=== PATIENT | female | born 1965 | race Caucasian/White ===

== ENCOUNTER 2018-04-25 12:13 | Inpatient (IN) | payer OTHER ==
[~2018-04-25] VITALS: Ht 157.5 cm; Wt 62.9 kg
--- NOTE | 2018-04-25 12:39 | Emergency Room Report ---
History of Present Illness General Chief Complaint: General Complaint Source: Patient, Significant Other Present Illness HPI Patient here for fever, suprapubic pain post embolectomy. She was seen with anemia a few weeks ago and started getting transfused. She had some chest pain and palpitations and transfusion was stopped. She had embolectomy of uterine fibroids Tuesday. Continued pain, fevers and weakness with pallor. Seen by MD with fever 102. Given tylenol. Pain rated 8/10, aching, pressure, suprapubic and not sig radiation. Oxycontin taken last night. Not move bowels for several days. Passing gas. Had [place] place during the operation. Sent to ED for transfusion due to pallor. Also needing evaluation for fevers and pain. Some dizziness and [place]. No chest pain. No dysuria. No cough, sore throat, rashes, extremity pain. Allergies: Coded Allergies: BACITRACIN (Unverified Allergy, Unknown, 04/25/18) NEOMYCIN (Unverified Allergy, Unknown, 04/25/18) POLYMYXIN B (Unverified Allergy, Unknown, 04/25/18) Uncoded Allergies: NEOSPORIN (Allergy, Unknown, 04/25/18) Patient History Past Medical History: see triage record Social History: Reports: alcohol use - rare; Denies: smoking, drug use Social History Narrative Now: No Reviewed Nursing Documentation: PMH: Agreed; PSxH: Agreed Review of Systems All Other Systems: negative except mentioned in HPI Physical Exam Vital Signs Date Time Temp Pulse Resp B/P (MAP) Pulse Ox O2 Delivery O2 Flow Rate FiO2 04/25/18 12:33 98.5 81 15 124/67 100 Room Air 98.4 Sp02 EP Interpretation: reviewed, normal General Appearance: no apparent distress, GCS 15 Head: normocephalic Eyes: bilateral eye PERRL, bilateral eye conjunctivae pale ENT: moist mucus membranes Neck: supple Respiratory: lungs clear, normal breath sounds Cardiovascular #1: regular rate, rhythm Cardiovascular #2: 2+ radial (R) Gastrointestinal: normal inspection, normal bowel sounds, no mass, non- distended, no guarding, no rebound, tenderness - suprapubic Genitourinary: no CVA tenderness Musculoskeletal: back normal, digits/nails normal, normal range of motion Neurologic: alert, oriented x3, grossly normal Psychiatric: mood/affect normal Skin: warm/dry, pallor Procedures Critical Care Time Critical Care Time Total Critical Care Time: 30 min bedside evaluation and treatment excludes procedures (EKG). Reason for critical care: sepsis, profound anemia Possible complications: hypotension, hypertension, IL, shock, arrhythmias, metabolic acidosis, end organ damage, respiratory failure. Interventions: Fluid resuscitation, antibiotics, blood, consultations, repeated evaluations Course: Patient with fever and pallor post embolectomy. Fluid resuscitation. Broad spectrum antibiotics. Need for blood. Discussion with blood bank. Informed consent with patient for blood (concern over prior reaction). Discussion regarding pain medicine. Observation receiving blood. Discussed with PMND - [employer]ass Plant Manager several times. Discussed with Int Med MD. Improved with treatment. Consultations: nursing staff, EMS, spouse, admitting MD, blood bank, PMD-LOB time study clerk Performed by: Dr. Roe Tolerated well condition = serious Medical Decision Making Diagnostic Impression: Primary Impression: Sepsis Qualified Codes: A41.9 - Sepsis, unspecified organism Additional Impressions: Profound anemia Qualified Codes: D62 - Acute posthemorrhagic anemia History of embolectomy ER Course Patient post embolectomy with pallor and fever with suprapubic pain. DDx; sepsis, anemia from blood loss, hemorrhagic shock, endometritis, UTI, other source of infection. Evaluation with EKG, CXR, CT abd/pelvis, labs. Needs hydration and broad spectrum antibiotics. Also offered treatment for pain. EKG without injury. Sig anemia (prior to hydration). Normal lactate. Elevated WBC. Urine positive ketones and blood (no evidence of infection). Blood ordered with calls to blood bank. Receiving blood without difficulty. Some improved after Fentanyl repeat dose. Discussed several times with Dr. Osorio. Admit med Dr. Osorio. Seen by Dr. Irvin in ED. Laboratory Tests Test 04/25/18 12:30 04/25/18 13:22 White Blood Count 17.1 K/UL (4.8-10.8) H Red Blood Count 2.88 M/UL (4.20-5.40) L Hemoglobin 7.5 G/DL (12.0-16.0) L Hematocrit 23.6 % (37.0-47.0) L Mean Corpuscular Volume 82 FL (80-99) Mean Corpuscular Hemoglobin 26.2 PG (27.0-31.0) L Mean Corpuscular Hemoglobin Concent 32.0 G/DL (32.0-36.0) Red Cell Distribution Width 12.9 % (11.6-14.8) Platelet Count 321 K/UL (150-450) Mean Platelet Volume 7.2 FL (6.5-10.1) Neutrophils (%) (Auto) % (45.0-75.0) Lymphocytes (%) (Auto) % (20.0-45.0) Monocytes (%) (Auto) % (1.0-10.0) Eosinophils (%) (Auto) % (0.0-3.0) Basophils (%) (Auto) % (0.0-2.0) Differential Total Cells Counted 100 Neutrophils % (Manual) 86 % (45-75) H Lymphocytes % (Manual) 9 % (20-45) L Monocytes % (Manual) 5 % (1-10) Eosinophils % (Manual) 0 % (0-3) Basophils % (Manual) 0 % (0-2) Band Neutrophils 0 % (0-8) Platelet Estimate Adequate Platelet Morphology Normal Hypochromasia 3+ Anisocytosis 1+ Spherocytes 2+ Prothrombin Time 11.2 SEC (9.30-11.50) Prothrombin Time INR 1.1 (0.9-1.1) PTT 45 SEC (23-33) H Sodium Level 135 MMOL/L (136-145) L Potassium Level 3.2 MMOL/L (3.5-5.1) L Chloride Level 97 MMOL/L (98-107) L Carbon Dioxide Level 28 MMOL/L (21-32) Anion Gap 10 mmol/L (5-15) Blood Urea Nitrogen 10 mg/dL (7-18) Creatinine 0.8 MG/DL (0.55-1.30) Estimate Glomerular Filtration Rate > 60 mL/min (>60) Glucose Level 126 MG/DL (74-106) H Lactic Acid Level 1.10 mmol/L (0.4-2.0) Calcium Level 8.6 MG/DL (8.5-10.1) Total Bilirubin 0.7 MG/DL (0.2-1.0) Aspartate Amino Transferase (AST) 17 U/L (15-37) Alanine Aminotransferase (ALT) 13 U/L (12-78) Alkaline Phosphatase 67 U/L (46-116) Total Protein 7.1 G/DL (6.4-8.2) Albumin 2.9 G/DL (3.4-5.0) L Globulin 4.2 g/dL Albumin/Globulin Ratio 0.7 (1.0-2.7) L Lipase 75 U/L (73-393) Urine Color Pending Urine Appearance Pending Urine pH Pending Urine Specific [place] Pending Urine Protein Pending Urine Glucose (UA) Pending Urine Ketones Pending Urine Occult Blood Pending Urine Nitrite Pending Urine Bilirubin Pending Urine Urobilinogen Pending Urine Leukocyte Esterase Pending Urine HCG, Qualitative Pending EKG Diagnostic Results Rate: normal Rhythm: NSR ST Segments: no acute changes Rhythm Strip Diag. Results EP Interpretation: yes Rhythm: NSR, no PVC's, no ectopy CT/MRI/US Diagnostic Results CT/MRI/US Diagnostic Results : Imaging Test Ordered: ct abd pelvis Impression Impression: Mixed attenuation uterine masses, largest containing central gas bubbles, as described. Appearance characteristic and typical of recent uterine fibroid embolization. No findings to suggest acute complication demonstrated Right groin findings consistent with recent arterial puncture Reticulated area of high attenuation in segment 8 of the liver. Their is a component of calcification, uncertain as to whether the remainder is due to calcification or contrast enhancement. If the former, this presumably represents a postinflammatory lesion. If the latter, could represent process such is an unusual hemangioma but other etiologies possible. Consider liver specific MRI for better characterization or compare to any prior outside studies that may be available Subcentimeter low-attenuation right renal lesion, too small to characterize, most likely benign simple cyst. No further follow-up necessary Minimal basilar dependent pulmonary atelectatic changes Last Vital Signs Date Time Temp Pulse Resp B/P (MAP) Pulse Ox O2 Delivery O2 Flow Rate FiO2 04/25/18 12:33 98.5 81 15 124/67 100 Room Air 98.4 Status: improved Disposition: ADMITTED INPATIENT Condition: Serious Sterling Roe M.D. Apr 25, 2018 12:39
[2018-04-25 12:52] VITALS: BP 124/67
[2018-04-25 13:00] LABS: HEMATOCRIT 23.6 % (37.0-47.0); HEMOGLOBIN 7.5 G/DL (12.0-16.0); MEAN CORPUSCULAR VOLUME 82 FL (80-99); PLATELET COUNT 321 K/UL (150-450); RED BLOOD COUNT 2.88 M/UL (4.20-5.40); RED CELL DISTRIBUTION WIDTH 12.9 % (11.6-14.8); WHITE BLOOD COUNT 17.1 K/UL (4.8-10.8)
[2018-04-25] MEDS ORDERED: Cefepime HCl 1 GM in D5W 55 ML IVPB ONE (13:00)
[2018-04-25 13:17] LABS: ANION GAP 10 mmol/L (5-15); BLOOD UREA NITROGEN 10 mg/dL (7-18); CALCIUM 8.6 MG/DL (8.5-10.1); CARBON DIOXIDE 28 MMOL/L (21-32); CHLORIDE 97 MMOL/L (98-107); CREATININE 0.8 MG/DL (0.55-1.30); POTASSIUM 3.2 MMOL/L (3.5-5.1); SODIUM 135 MMOL/L (136-145)
[2018-04-25 13:18] LABS: INR 1.1 (0.9-1.1)
[2018-04-25 13:21] LABS: ALANINE AMINOTRANSFERASE 13 U/L (12-78); ALBUMIN 2.9 G/DL (3.4-5.0); ALBUMIN/GLOBULIN RATIO 0.7 (1.0-2.7); ALKALINE PHOSPHATASE 67 U/L (46-116); ASPARTATE AMINO TRANSFERASE 17 U/L (15-37); BILIRUBIN,TOTAL 0.7 MG/DL (0.2-1.0)
[2018-04-25] MEDS ORDERED: fentaNYL 100 mcg/2 mL IV ONE ×2 (14:15→15:00)
[2018-04-25] MEDS ORDERED: oxyCODONE HCL/Acetaminophen 5/325mg ORAL PRN (14:30)
[2018-04-25 15:05] VITALS: BP 138/78
[2018-04-25 15:20] VITALS: BP 133/73
--- NOTE | 2018-04-25 15:28 | Diagnostic Imaging Report ---
Clinical Indication: Abdominal pain, cramping, status post uterine fibroid embolization Technique: Patient ingested oral contrast. IV administration nonionic contrast. Venous phase spiral acquisition obtained through the abdomen and pelvis. Multiplanar reconstructions were generated. Total dose length product 579.19 mGycm. CTDIvol(s) 11.73 mGy. Dose reduction achieved using automated exposure control Comparison: none Findings: The uterus is enlarged, demonstrates multiple mixed, mostly hypoattenuating, masses. The largest of these contains air bubbles. A few calcifications are seen anteriorly. The ovaries are unremarkable. No evidence of colon wall thickening, small bowel wall thickening, or bladder wall thickening. No free or loculated pelvic or abdominal fluid collections are evident. There is a moderate amount of retained stool throughout the colon, particularly proximally, and some of the more distal stool is fairly hyperattenuating. There is a slight degree of infiltration of the fat in the region of the right common femoral artery, and perhaps a small amount of blood surrounding the proximal superficial femoral artery, expected findings presumably related to the recent arterial puncture, but no large hematoma or pseudoaneurysm The appendix is normal. No evidence of diverticulosis or diverticulitis. No small bowel distention. Ingested contrast is seen throughout the entirety of the small bowel and well into the colon. No extraluminal gas demonstrated. Reticular appearing area of high attenuation is seen within the right hepatic lobe, segment 8. Unclear as to whether the hyperattenuation reflects calcification or contrast enhancement. Overall, this area measures approximately 3 cm long axis dimension. No other liver lesions are identified. The gallbladder, bile ducts, pancreas, spleen, adrenals, left kidney are unremarkable. The right kidney demonstrates an interpolar region subcentimeter low-attenuation lesion which is too small to characterize. Abundant, prominent, but not frankly enlarged retroperitoneal lymph nodes are demonstrated. There is posterior dependent atelectatic change at the lung bases, particularly on the right. The bones are unremarkable. Impression: Mixed attenuation uterine masses, largest containing central gas bubbles, as described. Appearance characteristic and typical of recent uterine fibroid embolization. No findings to suggest acute complication demonstrated Right groin findings consistent with recent arterial puncture No acute abnormality otherwise Reticulated area of high attenuation in segment 8 of the liver. Their is a component of calcification, uncertain as to whether the remainder is due to calcification or contrast enhancement. If the former, this presumably represents a postinflammatory lesion. If the latter, could represent process such is an unusual hemangioma but other etiologies possible. Consider liver specific MRI for better characterization or compare to any prior outside studies that may be available Subcentimeter low-attenuation right renal lesion, too small to characterize, most likely benign simple cyst. No further follow-up necessary Minimal basilar dependent pulmonary atelectatic changes The CT scanner at [facility] is accredited by the [employer] and the scans are performed using protocols designed to limit radiation exposure to as low as reasonably achievable to attain images of sufficient resolution adequate for diagnostic evaluation.
[2018-04-25 16:30] VITALS: BP 139/81
--- NOTE | 2018-04-25 16:45 | Consultation ---
Consult Note Consult Note Medicine consult dict anemia fever post [place] fibroids with bleeding HTN HPLD constipation see orders Darryn Irvin MD Apr 25, 2018 16:45
[2018-04-25 17:02] LABS: APPEARANCE,URINE CLEAR; BILIRUBIN, URINE NEGATIVE (NEGATIVE); COLOR,URINE PALE YELLOW; GLUCOSE, URINE (UA) NEGATIVE (NEGATIVE); KETONES,URINE 3+ (NEGATIVE); LEUKOCYTE ESTERASE ,URINE 1+ (NEGATIVE); NITRITE,URINE NEGATIVE (NEGATIVE); PH,URINE 6.5 (4.5-8.0); PROTEIN,URINE 1+ (NEGATIVE); UROBILINOGEN,URINE NORMAL MG/DL (0.0-1.0)
[2018-04-25] MEDS: HYDROmorphone 1mg/ml Carpuject IVP PRN ×2 (17:19→20:29)
[2018-04-25 17:32] VITALS: BP 156/86
[2018-04-25] MEDS: Docusate 100mg cap ORAL SCH (18:57)
[2018-04-25 20:00] VITALS: BP 137/73
[2018-04-25] MEDS: Potassium Chloride 20 MEQ in Dextrose 5%/Lactated Ringer's 1,000 ML IV SCH ×2 (20:32→22:41)
[2018-04-25] MEDS ORDERED: LISINOPRIL5 MG ORAL (20:55)
[2018-04-25] MEDS ORDERED: METOPROLOL SUCC25 MG ORAL (20:58)
[2018-04-25] MEDS: Iron Sucrose 100 MG in NS 55 ML IV SCH ×2 (21:00→22:40)
[2018-04-25] MEDS ORDERED: Zolpidem 5mg tab ORAL PRN (21:00)
[2018-04-25] MEDS: Lisinopril 10mg tab ORAL SCH (21:46)
[2018-04-25] MEDS: Miralax 17gm pkt ORAL SCH (21:46)
[2018-04-26] VITALS: BP 115/64
--- NOTE | 2018-04-26 01:47 | Consultation ---
DATE OF CONSULTATION: 04/25/2018 INTERNAL MEDICINE CONSULTATION CONSULTING PHYSICIAN: Mj Irvin M.D. HISTORY OF PRESENT ILLNESS: This is a 52-year-old woman who lives in [facility] and the [facility] and traveled here because of recurrent vaginal bleeding due to fibroids. She had problems with vaginal hemorrhage several years ago, but it stopped spontaneously until about several weeks ago and it recurred and that she was hospitalized hemorrhage about a week ago in [place] and the bleeding persisted. She had a blood transfusion that was aborted because of palpitations and went home with a hemoglobin less than 7. She traveled here and saw Dr. Osorio, who arranged a uterine artery embolization about 4 days ago. Since that time, she is having intermittent fevers up to 102 degrees and anemic. She was admitted for these reasons. PAST MEDICAL HISTORY: She does not smoke or drink excessively. She has a history of longstanding hypertension and is on medications. She has high cholesterol. She does not take medication for this. She has had the heart attack about three years ago, which she attributes to stress. She stated that the stress test showed no sign of blockage. ALLERGIES: . MEDICATIONS: Lisinopril 5 mg daily, metoprolol 25 mg daily, and iron she takes as needed. REVIEW OF SYSTEMS: Otherwise unremarkable. She is constipated. She has never had a colonoscopy. PHYSICAL EXAMINATION: GENERAL: The patient is alert and responsive. She appears pale. VITAL SIGNS: Blood pressure is 133/73, temperature 99.1 degrees, heart rate is 90, respirations 20, saturation is normal. SKIN: Warm and dry. HEENT: Head is normocephalic. NECK: No jugular venous distention. CHEST: Clear. CARDIAC: Rhythm is regular. ABDOMEN: Soft. There is no significant tenderness except in the suprapubic area. There is no mass or ascites. The liver and spleen are not enlarged. EXTREMITIES: No clubbing, cyanosis, or edema. LABORATORY AND DIAGNOSTIC DATA: Hemoglobin is 7.5, white count is 17,100 and there is a left shift, and platelets are normal. Chemistry shows low potassium, blood sugar is 126. Albumin 2.9. Urinalysis is pending. Coagulation shows INR is minimal, PTT is slightly elevated. IMPRESSION: 1. Post hemorrhagic anemia. 2. Fibroid uterus with recurrent hemorrhage. 3. Fever following uterine artery embolization. 4. Hypertension. 5. Hyperlipidemia. 6. Constipation. PLAN: The patient will be given intravenous fluids, antibiotics, and blood transfusion. Blood pressure will be managed with medication. We will check appropriate laboratory studies and monitor her closely. Constipation will be addressed. Thank you for asking me to see her in consultation. Mj Irvin M.D. DR: DIAN JOB#: [id number] CC: Chinmay Osorio M.D.; Fax#: [phone] MJ IRVIN M.D. ; FAX#: [phone]
[2018-04-26] MEDS: Cefepime HCl 1 GM in D5W 55 ML IVPB SCH ×2 (02:43→13:27)
[2018-04-26 04:00] VITALS: BP 133/72
[2018-04-26 04:41] LABS: HEMATOCRIT 33.4 % (37.0-47.0); HEMOGLOBIN 10.8 G/DL (12.0-16.0); MEAN CORPUSCULAR VOLUME 83 FL (80-99); PLATELET COUNT 329 K/UL (150-450); RED BLOOD COUNT 4.03 M/UL (4.20-5.40); RED CELL DISTRIBUTION WIDTH 12.8 % (11.6-14.8); WHITE BLOOD COUNT 15.4 K/UL (4.8-10.8)
[2018-04-26 05:18] LABS: ALANINE AMINOTRANSFERASE 12 U/L (12-78); ALBUMIN/GLOBULIN RATIO 0.8 (1.0-2.7); ALKALINE PHOSPHATASE 64 U/L (46-116); ANION GAP 11 mmol/L (5-15); ASPARTATE AMINO TRANSFERASE 19 U/L (15-37); BILIRUBIN,TOTAL 0.7 MG/DL (0.2-1.0); BLOOD UREA NITROGEN 10 mg/dL (7-18); CALCIUM 8.4 MG/DL (8.5-10.1); CARBON DIOXIDE 26 MMOL/L (21-32); CHLORIDE 98 MMOL/L (98-107); CHOLESTEROL 142 MG/DL (< 200); CREATININE 0.8 MG/DL (0.55-1.30); HDL CHOLESTEROL 26 MG/DL (40-60); POTASSIUM 3.4 MMOL/L (3.5-5.1); SODIUM 135 MMOL/L (136-145); TRIGLYCERIDES 140 MG/DL (30-150)
[2018-04-26] MEDS: Potassium Chloride 20 MEQ in Dextrose 5%/Lactated Ringer's 1,000 ML IV SCH ×4 (05:28→23:22)
[2018-04-26] MEDS ORDERED: Magnesium Citrate Liq Btl ORAL PRN (06:30)
[2018-04-26] MEDS ORDERED: Magnesium Citrate Liq Btl ORAL SCH (07:00)
[2018-04-26 08:56] VITALS: BP 131/78
[2018-04-26] MEDS: Metoprolol Succinate XL 25mg tab ORAL SCH (09:00)
[2018-04-26] MEDS: Lisinopril 10mg tab ORAL SCH ×2 (09:00→21:00)
[2018-04-26] MEDS: Docusate 100mg cap ORAL SCH ×3 (09:00→17:48)
[2018-04-26] MEDS ORDERED: Fleet's Mineral Oil Enema RECTAL PRN (09:15)
--- NOTE | 2018-04-26 09:32 | General Progress Note ---
Assessment/Plan Assessment/Plan 1. Post hemorrhagic anemia. 2. Fibroid uterus with recurrent hemorrhage. 3. Fever following uterine artery embolization. 4. Hypertension. 5. Hyperlipidemia. 6. Constipation. T to 102.9 Fleet enema Hgb better cont abx echo pdg BP controlled Subjective Gastrointestinal/Abdominal: Reports: abdominal pain, constipated, poor appetite Allergies: Coded Allergies: BACITRACIN (Unverified Allergy, Unknown, 04/25/18) NEOMYCIN (Unverified Allergy, Unknown, 04/25/18) POLYMYXIN B (Unverified Allergy, Unknown, 04/25/18) Uncoded Allergies: NEOSPORIN (Allergy, Unknown, 04/25/18) Objective Last 24 Hour Vital Signs Date Time Temp Pulse Resp B/P (MAP) Pulse Ox O2 Delivery O2 Flow Rate FiO2 04/26/18 09:00 86 131/78 04/26/18 09:00 131/78 04/26/18 08:56 99.4 86 131/78 (95) 99.4 04/26/18 04:00 99.0 89 133/72 (92) 99.0 04/26/18 00:00 99.0 82 115/64 (81) 99.0 04/25/18 22:44 100.5 04/25/18 21:46 137/73 04/25/18 21:45 100.1 04/25/18 21:30 100.1 100.1 04/25/18 21:00 Room Air 04/25/18 20:59 100.1 04/25/18 20:29 100.4 04/25/18 20:00 100.4 89 19 137/73 (94) 98 100.4 04/25/18 18:00 Room Air 04/25/18 17:35 102.9 04/25/18 17:32 102.9 89 20 156/86 (109) 102.9 04/25/18 17:19 99.1 04/25/18 16:30 99.7 93 18 139/81 (100) 99.7 04/25/18 15:43 99.1 90 20 133/73 100 Room Air 99.1 04/25/18 15:20 99.1 90 20 133/73 100 Room Air 99.1 04/25/18 15:05 98.4 97 18 138/78 100 Room Air 98.4 04/25/18 14:58 98.4 04/25/18 14:23 98.4 04/25/18 12:52 98.4 15 124/67 100 Room Air 98.4 04/25/18 12:33 98.5 81 15 124 100 Room Air 98.4 Intake and Output 04/25/18 04/26/18 19:00 07:00 Intake Total 300 ml 1575 ml Output Total 0 ml 0 ml Balance 300 ml 1575 ml Intake Oral 300 ml 420 ml IV Total 1155 ml Output Stool Total 0 ml 0 ml # Voids 3 3 Laboratory Tests 04/25/18 12:30: White Blood Count 17.1H, Red Blood Count 2.88L, Hemoglobin 7.5L, Hematocrit 23.6L, Mean Corpuscular Volume 82, Mean Corpuscular Hemoglobin 26.2L, Mean Corpuscular Hemoglobin Concent 32.0, Red Cell Distribution Width 12.9, Platelet Count 321, Mean Platelet Volume 7.2, Neutrophils (%) (Auto) , Lymphocytes (%) ( Auto) , Monocytes (%) (Auto) , Eosinophils (%) (Auto) , Basophils (%) (Auto) , Differential Total Cells Counted 100, Neutrophils % (Manual) 86H, Lymphocytes % (Manual) 9L, Monocytes % (Manual) 5, Eosinophils % (Manual) 0, Basophils % ( Manual) 0, Band Neutrophils 0, Platelet Estimate Adequate, Platelet Morphology Normal, Hypochromasia 3+, Anisocytosis 1+, Spherocytes 2+, Prothrombin Time 11.2 , Prothromb Time International Ratio 1.1, Activated Partial Thromboplast Time 45H, Sodium Level 135L, Potassium Level 3.2L, Chloride Level 97L, Carbon Dioxide Level 28, Anion Gap 10, Blood Urea Nitrogen 10, Creatinine 0.8, Estimat Glomerular Filtration Rate > 60, Glucose Level 126H, Lactic Acid Level 1.10, Calcium Level 8.6, Total Bilirubin 0.7, Aspartate Amino Transf (AST/SGOT) 17, Alanine Aminotransferase (ALT/SGPT) 13, Alkaline Phosphatase 67, Total Protein 7.1, Albumin 2.9L, Globulin 4.2, Albumin/Globulin Ratio 0.7L, Lipase 75 04/25/18 16:30: Urine Color Pale yellow, Urine Appearance Clear, Urine pH 6.5, Urine Specific [place] 1.005, Urine Protein 1+H, Urine Glucose (UA) Negative, Urine Ketones 3+H , Urine Occult Blood 4+H, Urine Nitrite Negative, Urine Bilirubin Negative, Urine Urobilinogen Normal, Urine Leukocyte Esterase 1+H, Urine RBC 2-4H, Urine WBC 0-2, Urine Squamous Epithelial Cells Few, Urine Bacteria Few, Urine HCG, Qualitative Negative 04/26/18 03:37: White Blood Count 15.4H, Red Blood Count 4.03L, Hemoglobin 10.8#L, Hematocrit 33.4#L, Mean Corpuscular Volume 83, Mean Corpuscular Hemoglobin 26.9L, Mean Corpuscular Hemoglobin Concent 32.4, Red Cell Distribution Width 12.8, Platelet Count 329, Mean Platelet Volume 7.1, Neutrophils (%) (Auto) , Lymphocytes (%) ( Auto) , Monocytes (%) (Auto) , Eosinophils (%) (Auto) , Basophils (%) (Auto) , Differential Total Cells Counted 100, Neutrophils % (Manual) 84H, Lymphocytes % (Manual) 2L, Monocytes % (Manual) 10, Eosinophils % (Manual) 3, Basophils % ( Manual) 1, Band Neutrophils 0, Platelet Estimate Adequate, Platelet Morphology Normal, Hypochromasia 1+, Anisocytosis 1+, Sodium Level 135L, Potassium Level 3.4L, Chloride Level 98, Carbon Dioxide Level 26, Anion Gap 11, Blood Urea Nitrogen 10, Creatinine 0.8, Estimat Glomerular Filtration Rate > 60, Glucose Level 102, Calcium Level 8.4L, Total Bilirubin 0.7, Aspartate Amino Transf (AST/ SGOT) 19, Alanine Aminotransferase (ALT/SGPT) 12, Alkaline Phosphatase 64, Total Protein 6.9, Albumin 3.0L, Globulin 3.9, Albumin/Globulin Ratio 0.8L, Triglycerides Level 140, Cholesterol Level 142, LDL Cholesterol 87, HDL Cholesterol 26L, Cholesterol/HDL Ratio 5.5H, Thyroid Stimulating Hormone (TSH) 0.914 Height (Feet): 5 Height (Inches): 2.00 Weight (Pounds): 138 General Appearance: no apparent distress Abdomen: non tender, soft Darryn Irvin MD Apr 26, 2018 09:32
--- NOTE | 2018-04-26 11:35 | General Surgery Progress Note ---
General Surgery-Progress Note Subjective Day of Surgery: april 21 Reason for Consult fever unknown origin Symptoms: improved, tolerating diet, voiding well, passing flatus Objective Last 24 Hour Vital Signs Date Time Temp Pulse Resp B/P (MAP) Pulse Ox O2 Delivery O2 Flow Rate FiO2 04/26/18 09:00 Room Air 04/26/18 09:00 86 131/78 04/26/18 09:00 131/78 04/26/18 08:56 99.4 86 131/78 (95) 99.4 04/26/18 04:00 99.0 89 133/72 (92) 99.0 04/26/18 00:00 99.0 82 115/64 (81) 99.0 04/25/18 22:44 100.5 04/25/18 21:46 137/73 04/25/18 21:45 100.1 04/25/18 21:30 100.1 100.1 04/25/18 21:00 Room Air 04/25/18 20:59 100.1 04/25/18 20:29 100.4 04/25/18 20:00 100.4 89 19 137/73 (94) 98 100.4 04/25/18 18:00 Room Air 04/25/18 17:35 102.9 04/25/18 17:32 102.9 89 20 156/86 (109) 102.9 04/25/18 17:19 99.1 04/25/18 16:30 99.7 93 18 139/81 (100) 99.7 04/25/18 15:43 99.1 90 20 133/73 100 Room Air 99.1 04/25/18 15:20 99.1 90 20 133/73 100 Room Air 99.1 04/25/18 15:05 98.4 97 18 138/78 100 Room Air 98.4 04/25/18 14:58 98.4 04/25/18 14:23 98.4 04/25/18 12:52 98.4 15 124/67 100 Room Air 98.4 04/25/18 12:33 98.5 81 15 124/67 100 Room Air 98.4 I&O Intake and Output 04/25/18 04/26/18 19:00 07:00 Intake Total 300 ml 1575 ml Output Total 0 ml 0 ml Balance 300 ml 1575 ml Intake Oral 300 ml 420 ml IV Total 1155 ml Output Stool Total 0 ml 0 ml # Voids 3 3 Dressing: dry Wound: clean, dry, intact Drains: none Cardiovascular: RSR Respiratory: clear Abdomen: soft, flat, scaphoid, tenderness, present bowel sounds Laboratory Tests Test 04/25/18 12:30 04/25/18 16:30 04/26/18 03:37 White Blood Count 17.1 K/UL (4.8-10.8) H 15.4 K/UL (4.8-10.8) H Red Blood Count 2.88 M/UL (4.20-5.40) L 4.03 M/UL (4.20-5.40) L Hemoglobin 7.5 G/DL (12.0-16.0) L 10.8 G/DL (12.0-16.0) #L Hematocrit 23.6 % (37.0-47.0) L 33.4 % (37.0-47.0) #L Mean Corpuscular Volume 82 FL (80-99) 83 FL (80-99) Mean Corpuscular Hemoglobin 26.2 PG (27.0-31.0) L 26.9 PG (27.0-31.0) L Mean Corpuscular Hemoglobin Concent 32.0 G/DL (32.0-36.0) 32.4 G/DL (32.0-36.0) Red Cell Distribution Width 12.9 % (11.6-14.8) 12.8 % (11.6-14.8) Platelet Count 321 K/UL (150-450) 329 K/UL (150-450) Mean Platelet Volume 7.2 FL (6.5-10.1) 7.1 FL (6.5-10.1) Neutrophils (%) (Auto) % (45.0-75.0) % (45.0-75.0) Lymphocytes (%) (Auto) % (20.0-45.0) % (20.0-45.0) Monocytes (%) (Auto) % (1.0-10.0) % (1.0-10.0) Eosinophils (%) (Auto) % (0.0-3.0) % (0.0-3.0) Basophils (%) (Auto) % (0.0-2.0) % (0.0-2.0) Differential Total Cells Counted 100 100 Neutrophils % (Manual) 86 % (45-75) H 84 % (45-75) H Lymphocytes % (Manual) 9 % (20-45) L 2 % (20-45) L Monocytes % (Manual) 5 % (1-10) 10 % (1-10) Eosinophils % (Manual) 0 % (0-3) 3 % (0-3) Basophils % (Manual) 0 % (0-2) 1 % (0-2) Band Neutrophils 0 % (0-8) 0 % (0-8) Platelet Estimate Adequate Adequate Platelet Morphology Normal Normal Hypochromasia 3+ 1+ Anisocytosis 1+ 1+ Spherocytes 2+ Prothrombin Time 11.2 SEC (9.30-11.50) Prothromb Time International Ratio 1.1 (0.9-1.1) Activated Partial Thromboplast Time 45 SEC (23-33) H Sodium Level 135 MMOL/L (136-145) L 135 MMOL/L (136-145) L Potassium Level 3.2 MMOL/L (3.5-5.1) L 3.4 MMOL/L (3.5-5.1) L Chloride Level 97 MMOL/L (98-107) L 98 MMOL/L (98-107) Carbon Dioxide Level 28 MMOL/L (21-32) 26 MMOL/L (21-32) Anion Gap 10 mmol/L (5-15) 11 mmol/L (5-15) Blood Urea Nitrogen 10 mg/dL (7-18) 10 mg/dL (7-18) Creatinine 0.8 MG/DL (0.55-1.30) 0.8 MG/DL (0.55-1.30) Estimat Glomerular Filtration Rate > 60 mL/min (>60) > 60 mL/min (>60) Glucose Level 126 MG/DL (74-106) H 102 MG/DL (74-106) Lactic Acid Level 1.10 mmol/L (0.4-2.0) Calcium Level 8.6 MG/DL (8.5-10.1) 8.4 MG/DL (8.5-10.1) L Total Bilirubin 0.7 MG/DL (0.2-1.0) 0.7 MG/DL (0.2-1.0) Aspartate Amino Transf (AST/SGOT) 17 U/L (15-37) 19 U/L (15-37) Alanine Aminotransferase (ALT/SGPT) 13 U/L (12-78) 12 U/L (12-78) Alkaline Phosphatase 67 U/L (46-116) 64 U/L (46-116) Total Protein 7.1 G/DL (6.4-8.2) 6.9 G/DL (6.4-8.2) Albumin 2.9 G/DL (3.4-5.0) L 3.0 G/DL (3.4-5.0) L Globulin 4.2 g/dL 3.9 g/dL Albumin/Globulin Ratio 0.7 (1.0-2.7) L 0.8 (1.0-2.7) L Lipase 75 U/L (73-393) Urine Color Pale yellow Urine Appearance Clear Urine pH 6.5 (4.5-8.0) Urine Specific Gregory 1.005 (1.005-1.035) Urine Protein 1+ (NEGATIVE) H Urine Glucose (UA) Negative (NEGATIVE) Urine Ketones 3+ (NEGATIVE) H Urine Occult Blood 4+ (NEGATIVE) H Urine Nitrite Negative (NEGATIVE) Urine Bilirubin Negative (NEGATIVE) Urine Urobilinogen Normal MG/DL (0.0-1.0) Urine Leukocyte Esterase 1+ (NEGATIVE) H Urine RBC 2-4 /HPF (0 - 2) H Urine WBC 0-2 /HPF (0 - 2) Urine Squamous Epithelial Cells Few /LPF (NONE/OCC) Urine Bacteria Few /HPF (NONE) Urine HCG, Qualitative Negative (NEGATIVE) Triglycerides Level 140 MG/DL (30-150) Cholesterol Level 142 MG/DL (< 200) LDL Cholesterol 87 mg/dL (<100) HDL Cholesterol 26 MG/DL (40-60) L Cholesterol/HDL Ratio 5.5 (3.3-4.4) H Thyroid Stimulating Hormone (TSH) 0.914 uiU/mL (0.358-3.740) Imaging ct abdomen and pelvis reviewed, no acute findings noted Assessment Additional Comments fever work up in progress, temp elevation likely secondary to uae, wbc trending down, temperature curve down Plan Problems: (1) Constipation Additional Comments tao's enema, per dr stewart. ambulate c assist. patient refused third unit prbc. refused magnesium citrate. Chinmay Osorio MD Apr 26, 2018 11:34
[2018-04-26 12:00] VITALS: BP 118/68
[2018-04-26 15:50] VITALS: BP 116/63
[2018-04-26] MEDS ORDERED: Bisacodyl EC 5mg tab ORAL SCH (16:15)
[2018-04-26] MEDS ORDERED: Bisacodyl EC 5mg tab ORAL ONE (16:15)
--- NOTE | 2018-04-26 16:53 | Cardiology Report ---
APPROVED REPORT EXAM: Two-dimensional and M-mode echocardiogram with Doppler and color Doppler. INDICATION SOB M-Mode DIMENSIONS IVSd1.4 (0.7-1.1cm)Left Atrium (MM)3.3 (1.6-4.0cm) LVDd4.8 (3.5-5.6cm)Aortic Root3.3 (2.0-3.7cm) PWd1.3 (0.7-1.1cm)Aortic Cusp Exc.1.5 (1.5-2.0cm) IVSs1.7 cm LVDs3.1 (2.5-4.0cm) PWs1.8 cm Normal left ventricular chamber size, systolic function and wall motion. Left ventricular ejection fraction estimated to be 60 %. Borderline left ventricular hypertrophy. No evidence of pericardial effusion. All other cardiac chamber sizes are within normal limits. Mild focal aortic valve sclerosis with adequate cusp excursion. Mildly thickened mitral valve leaflets with normal excursion. Mild mitral annulus and aortic root calcification. Pulmonic valve not well visualized. Normal tricuspid valve structure. IVC measured at 2.0 cm with slight physiologic collapse suggestive of mildly increased RA pressure. A color flow and spectral Doppler study was performed and revealed: Mild aortic regurgitation. Trace to mild mitral regurgitation. Mitral inflow indicates normal left ventricular diastolic function. Mild tricuspid regurgitation. Tricuspid systolic velocities suggests peak right ventricular systolic pressure of 43 mmHg, consistent with mild pulmonary hypertension. Trace pulmonic regurgitation present.
--- NOTE | 2018-04-26 18:04 | Cardiology Report ---
APPROVED REPORT EKG Measurement Heart [id number] Normal sinus rhythm Normal ECG
[2018-04-26 20:00] VITALS: BP 142/83
[2018-04-26] MEDS: Iron Sucrose 100 MG in NS 55 ML IV SCH ×2 (20:37→21:00)
[2018-04-26] MEDS: Miralax 17gm pkt ORAL SCH (21:00)
[2018-04-27 00:13] VITALS: BP 134/78
[2018-04-27] MEDS: Cefepime HCl 1 GM in D5W 55 ML IVPB SCH ×2 (01:00→12:38)
[2018-04-27 04:28] VITALS: BP 148/83
[2018-04-27 07:23] LABS: BASOPHILS % (AUTO) 1.1 % (0.0-2.0); EOSINOPHILS % (AUTO) 3.6 % (0.0-3.0); HEMATOCRIT 29.9 % (37.0-47.0); HEMOGLOBIN 9.6 G/DL (12.0-16.0); LYMPHOCYTES % (AUTO) 11.1 % (20.0-45.0); MEAN CORPUSCULAR VOLUME 83 FL (80-99); MONOCYTES % (AUTO) 10.6 % (1.0-10.0); NEUTROPHILS % (AUTO) 73.7 % (45.0-75.0); PLATELET COUNT 380 K/UL (150-450); RED BLOOD COUNT 3.59 M/UL (4.20-5.40); RED CELL DISTRIBUTION WIDTH 13.5 % (11.6-14.8); WHITE BLOOD COUNT 10.3 K/UL (4.8-10.8)
[2018-04-27 07:44] LABS: ALANINE AMINOTRANSFERASE 16 U/L (12-78); ALBUMIN 2.8 G/DL (3.4-5.0); ALBUMIN/GLOBULIN RATIO 0.7 (1.0-2.7); ALKALINE PHOSPHATASE 82 U/L (46-116); ANION GAP 9 mmol/L (5-15); ASPARTATE AMINO TRANSFERASE 20 U/L (15-37); BILIRUBIN,TOTAL 0.5 MG/DL (0.2-1.0); BLOOD UREA NITROGEN 6 mg/dL (7-18); CARBON DIOXIDE 29 MMOL/L (21-32); CHLORIDE 103 MMOL/L (98-107); CREATININE 0.7 MG/DL (0.55-1.30); POTASSIUM 3.6 MMOL/L (3.5-5.1); SODIUM 141 MMOL/L (136-145)
[2018-04-27 08:00] VITALS: BP 123/82
[2018-04-27] MEDS: Potassium Chloride 20 MEQ in Dextrose 5%/Lactated Ringer's 1,000 ML IV SCH (08:24)
[2018-04-27] MEDS: Lisinopril 10mg tab ORAL SCH (08:43)
[2018-04-27] MEDS: Metoprolol Succinate XL 25mg tab ORAL SCH (08:43)
[2018-04-27] MEDS: Docusate 100mg cap ORAL SCH (08:44)
--- NOTE | 2018-04-27 10:26 | GI Initial Consult Note ---
History of Present Illness General Date patient seen: Apr 27, 2018 Time patient seen: 13:43 Reason for Hospitalization: General Complaint Referring physician: LARISSA Reason for Consultation: CONSTIPATION Present Illness HPI Patient here for fever, suprapubic pain post embolectomy. She was seen with anemia a few weeks ago and started getting transfused. She had some chest pain and palpitations and transfusion was stopped. She had embolectomy of uterine fibroids Tuesday. Continued pain, fevers and weakness with pallor. Seen by MD with fever 102. Given tylenol. Pain rated 8/10, aching, pressure, suprapubic and not sig radiation. Oxycontin taken last night. Not move bowels for several days. Passing gas. Had [place] place during the operation. Sent to ED for transfusion due to pallor. Also needing evaluation for fevers and pain. Some dizziness and A[place]STA. No chest pain. No dysuria. No cough, sore throat, rashes, extremity pain. GI consulted for severe constipation. Pt seen, awake A&Ox4 NAD with no active s /sx of N/V/D. Per patient, she's been battling with chronic constipation. States she is unable to fully excavate her bowels. At home, takes flax seeds and other home remedies which provide her relief. States enema's do help her as well. She presents today with c/o of no BM since admission. The patient is from out of town, here for embolization and currently on opioids. The patient has no history of endoscopy nor colonoscopy. Home Meds Reported Medications Metoprolol Succinate* (METOPROLOL SUCCINATE*) 25 Mg Tab.er.24h, 25 MG ORAL DAILY , TAB 04/25/18 Lisinopril (LISINOPRIL*) 5 Mg Tablet, 5 MG ORAL DAILY, TAB 04/25/18 Med list reviewed/reconciled: Yes Allergies: Coded Allergies: BACITRACIN (Unverified Allergy, Unknown, 04/25/18) NEOMYCIN (Unverified Allergy, Unknown, 04/25/18) POLYMYXIN B (Unverified Allergy, Unknown, 04/25/18) Uncoded Allergies: NEOSPORIN (Allergy, Unknown, 04/25/18) Patient History History Provided By: Patient, Medical Record [facility] Narrative Past Medical History: see triage record Social History: Reports: alcohol use - rare; Denies: smoking, drug use Social History Narrative Now: No Reviewed Nursing Documentation: PMH: Agreed; PSxH: Agreed Social History: Denies: smoking, alcohol use, drug use, other Review of Systems All Other Systems: negative except mentioned in HPI Physical Exam Vital Signs Date Time Temp Pulse Resp B/P (MAP) Pulse Ox O2 Delivery O2 Flow Rate FiO2 04/25/18 12:33 98.5 81 15 124/67 100 Room Air 98.4 Sp02 EP Interpretation: reviewed, normal Labs Laboratory Tests Test 04/27/18 06:55 White Blood Count 10.3 K/UL (4.8-10.8) Red Blood Count 3.59 M/UL (4.20-5.40) L Hemoglobin 9.6 G/DL (12.0-16.0) L Hematocrit 29.9 % (37.0-47.0) L Mean Corpuscular Volume 83 FL (80-99) Mean Corpuscular Hemoglobin 26.8 PG (27.0-31.0) L Mean Corpuscular Hemoglobin Concent 32.1 G/DL (32.0-36.0) Red Cell Distribution Width 13.5 % (11.6-14.8) Platelet Count 380 K/UL (150-450) Mean Platelet Volume 6.6 FL (6.5-10.1) Neutrophils (%) (Auto) 73.7 % (45.0-75.0) Lymphocytes (%) (Auto) 11.1 % (20.0-45.0) L Monocytes (%) (Auto) 10.6 % (1.0-10.0) H Eosinophils (%) (Auto) 3.6 % (0.0-3.0) H Basophils (%) (Auto) 1.1 % (0.0-2.0) Sodium Level 141 MMOL/L (136-145) Potassium Level 3.6 MMOL/L (3.5-5.1) Chloride Level 103 MMOL/L (98-107) Carbon Dioxide Level 29 MMOL/L (21-32) Anion Gap 9 mmol/L (5-15) Blood Urea Nitrogen 6 mg/dL (7-18) L Creatinine 0.7 MG/DL (0.55-1.30) Estimat Glomerular Filtration Rate > 60 mL/min (>60) Glucose Level 115 MG/DL (74-106) H Calcium Level 9.0 MG/DL (8.5-10.1) Total Bilirubin 0.5 MG/DL (0.2-1.0) Aspartate Amino Transf (AST/SGOT) 20 U/L (15-37) Alanine Aminotransferase (ALT/SGPT) 16 U/L (12-78) Alkaline Phosphatase 82 U/L (46-116) Total Protein 7.0 G/DL (6.4-8.2) Albumin 2.8 G/DL (3.4-5.0) L Globulin 4.2 g/dL Albumin/Globulin Ratio 0.7 (1.0-2.7) L General Appearance: well appearing, no apparent distress, alert Head: normocephalic EENT: PERRL/EOMI, normal ENT inspection Neck: supple Respiratory: normal breath sounds, no respiratory distress Cardiovascular: normal rate Gastrointestinal: normal inspection, non tender, soft, normal bowel sounds, non -distended Rectal: deferred Genitourinary: no CVA tenderness Musculoskeletal: normal inspection, back normal Neurologic: normal inspection, alert, oriented x3, responsive Psychiatric: normal inspection, judgement/insight normal, memory normal Skin: normal inspection, normal color, no rash, warm/dry, palpation normal, well hydrated Lymphatic: normal inspection, no adenopathy Current Medications Current Medications Medications (Trade) Dose Ordered Sig/Myranda Route PRN Reason Start Time Stop Time Status Last Admin Dose Admin Acetaminophen (Tylenol) 650 mg Q3H PRN ORAL Mild Pain/Temp > 100.0 04/25/18 14:30 05/25/18 14:29 04/25/18 21:45 Cefepime HCl 1 gm/ Dextrose 55 ml @ 110 mls/hr Q12H IVPB 04/26/18 01:00 05/03/18 00:59 04/27/18 01:00 Docusate Sodium (Colace) 100 mg TWICE A DAY ORAL 04/25/18 18:00 05/25/18 17:59 04/27/18 08:44 Hydromorphone HCl (Dilaudid) 1 mg Q3H PRN IVP Moderate Pain (Pain Scale 4-6) 04/25/18 14:30 05/02/18 14:29 04/25/18 20:29 Hydromorphone HCl (Dilaudid) 2 mg Q3H PRN IVP Severe Pain (Pain Scale 7-10) 04/25/18 14:30 05/02/18 14:29 Iron Sucrose 100 mg/Sodium Chloride 60 ml @ 240 mls/hr BEDTIME IV 04/26/18 21:00 04/30/18 21:14 Lisinopril (Zestril) 10 mg Q12H ORAL 04/25/18 21:00 05/25/18 20:59 04/25/18 21:46 Metoprolol Succinate (Toprol XL) 25 mg DAILY ORAL 04/26/18 09:00 05/26/18 08:59 Metronidazole 100 ml @ 100 mls/hr Q6H IVPB 04/25/18 19:00 05/02/18 18:59 04/27/18 06:26 Mineral Oil (Fleet's Mineral Oil Enema) 133 ml DAILY PRN RECTAL Constipation 04/26/18 09:15 05/26/18 09:14 04/26/18 11:26 Ondansetron HCl (Zofran) 4 mg Q6H PRN IVP Nausea & Vomiting 04/25/18 14:30 05/25/18 14:29 04/26/18 02:57 Oxycodone/ Acetaminophen (Percocet 5-325) 1 tab Q3H PRN ORAL Mild Pain (Pain Scale 1-3) 04/25/18 14:30 05/02/18 14:29 Polyethylene Glycol (Miralax) 17 gm BEDTIME ORAL 04/25/18 21:00 05/25/18 20:59 04/25/18 21:46 Potassium Chloride 20 meq/ Dextrose/Lactated Ringer's 1,010 ml @ 150 mls/hr Q6H44M IV 04/25/18 16:00 05/25/18 15:59 04/26/18 23:22 Zolpidem Tartrate (Ambien) 5 mg HSPRN PRN ORAL Insomnia 04/25/18 21:00 05/02/18 20:59 GI: Plan Problems: (1) Constipation (2) Profound anemia (3) History of embolectomy Plan chronic constipation vs IBS-C abdominal bloating vs SIBO dulcolax suppository x 1 encourage ambulation sennokot x1/prn simethicone x1/prn probiotics enema prn reduce opioid use explained to patient that she will need GI follow up with PCP or piano case maker to manage her chronic constipation, test for SIBO and have an initial screening colonoscopy. dc planning per primary Discussed with Dr. Kulkarni. Thank you for this patient referral, we will follow. The patient was seen and examined at bedside and all new and available data was reviewed in the patients chart. I agree with the above findings, impression and plan. (Patient seen earlier today. Signature stamp does not reflect patient encounter time.). - MD Nikia ChavezTucson Medical CenterLemuel PIT SUPERVISOR Apr 27, 2018 10:26
[2018-04-27] MEDS ORDERED: Simethicone 80mg tab ORAL SCH (10:28)
[2018-04-27] MEDS ORDERED: Sennosides 8.6mg ORAL SCH (10:28)
[2018-04-27] MEDS ORDERED: Fleet's Mineral Oil Enema RECTAL PRN (10:29)
[2018-04-27] MEDS ORDERED: Simethicone 80mg tab ORAL PRN (10:30)
[2018-04-27] MEDS ORDERED: Sennosides 8.6mg ORAL PRN (10:30)
[2018-04-27 11:00] VITALS: BP 134/78
[2018-04-27] MEDS ORDERED: Lactobacillus-GG tablet ORAL SCH (13:00)
[2018-04-27] MEDS ORDERED: NS 275ml ONE (14:44)
--- NOTE | 2018-04-27 17:14 | General Surgery Progress Note ---
General Surgery-Progress Note Subjective Day of Surgery: april 21 Reason for Consult fever unknown origin, acute anemia Symptoms: improved, pain absent, tolerating diet, voiding well, passing flatus , BM Objective Last 24 Hour Vital Signs Date Time Temp Pulse Resp B/P (MAP) Pulse Ox O2 Delivery O2 Flow Rate FiO2 04/27/18 11:00 98.1 82 18 134/78 (96) 99 98.1 04/27/18 09:00 Room Air 04/27/18 08:43 83 123/82 04/27/18 08:43 123/82 04/27/18 08:00 98.5 83 18 123/82 (96) 98 98.5 04/27/18 04:28 98.9 72 17 148/83 (104) 99 98.9 04/27/18 00:13 98.5 77 18 134/78 (96) 100 98.5 04/26/18 21:00 Room Air 04/26/18 21:00 142/83 04/26/18 20:00 98.7 82 17 142/83 (102) 100 98.7 I&O Intake and Output 04/26/18 04/27/18 19:00 07:00 Intake Total 1575 ml 2605 ml Output Total 450 ml Balance 1575 ml 2155 ml Intake Oral 720 ml 1000 ml IV Total 855 ml 1605 ml Output Urine Total 450 ml # Voids 5 6 # Bowel Movements 1 Dressing: dry Wound: clean Drains: none Cardiovascular: RSR Abdomen: soft, flat, scaphoid, non-tender, present bowel sounds Laboratory Tests Test 04/27/18 06:55 White Blood Count 10.3 K/UL (4.8-10.8) Red Blood Count 3.59 M/UL (4.20-5.40) L Hemoglobin 9.6 G/DL (12.0-16.0) L Hematocrit 29.9 % (37.0-47.0) L Mean Corpuscular Volume 83 FL (80-99) Mean Corpuscular Hemoglobin 26.8 PG (27.0-31.0) L Mean Corpuscular Hemoglobin Concent 32.1 G/DL (32.0-36.0) Red Cell Distribution Width 13.5 % (11.6-14.8) Platelet Count 380 K/UL (150-450) Mean Platelet Volume 6.6 FL (6.5-10.1) Neutrophils (%) (Auto) 73.7 % (45.0-75.0) Lymphocytes (%) (Auto) 11.1 % (20.0-45.0) L Monocytes (%) (Auto) 10.6 % (1.0-10.0) H Eosinophils (%) (Auto) 3.6 % (0.0-3.0) H Basophils (%) (Auto) 1.1 % (0.0-2.0) Sodium Level 141 MMOL/L (136-145) Potassium Level 3.6 MMOL/L (3.5-5.1) Chloride Level 103 MMOL/L (98-107) Carbon Dioxide Level 29 MMOL/L (21-32) Anion Gap 9 mmol/L (5-15) Blood Urea Nitrogen 6 mg/dL (7-18) L Creatinine 0.7 MG/DL (0.55-1.30) Estimat Glomerular Filtration Rate > 60 mL/min (>60) Glucose Level 115 MG/DL (74-106) H Calcium Level 9.0 MG/DL (8.5-10.1) Total Bilirubin 0.5 MG/DL (0.2-1.0) Aspartate Amino Transf (AST/SGOT) 20 U/L (15-37) Alanine Aminotransferase (ALT/SGPT) 16 U/L (12-78) Alkaline Phosphatase 82 U/L (46-116) Total Protein 7.0 G/DL (6.4-8.2) Albumin 2.8 G/DL (3.4-5.0) L Globulin 4.2 g/dL Albumin/Globulin Ratio 0.7 (1.0-2.7) L Additional Comments WBC now normal, fever curve trending downward Plan Problems: (1) Constipation Additional Comments GI consult with dr stovall, good results. patient discharged. Chinmay Osorio MD Apr 27, 2018 17:14
--- NOTE | 2018-04-28 11:01 | Discharge Summary ---
Discharge Summary Discharge Summary _ DATE OF ADMISSION: 04/25/2018 DATE OF DISCHARGE: 04/27/2018 CONSULTANTS: Dr. Darryn Kulkarni BRIEF HOSPITAL COURSE: Patient is a 52-year-old female, who lives in [facility] and traveled here because of recurrent vaginal bleeding due to fibroids. She had problems with vaginal hemorrhage several years ago, but stopped until about several weeks where it recurred, she was hospitalized in [facility] and bleeding persisted. She went to [place], she underwent uterine artery embolization 4 days prior. Since that time, she was having intermittent fever and anemia. Patient was sent to ED for further evaluation. On evaluation at ED, vital signs were stable, blood work was notable for anemia , hemoglobin was 7.5, hematocrit 23. CT scan of the abdomen and pelvis showed appearance characteristic and typical of recent uterine fibroid embolization. No findings of acute complication demonstrated. She was pancultured and and was admitted for further workup. She was given IV fluids and blood transfusion. She was given pain management. She was started on Flagyl and cefepime. She had spikes of fever which eventually defervesced. She was seen by GI. She had been battling chronic constipation. She was recommended to follow-up with GI when she gets back to [place]. She was given bowel regimen consisting of senna and Dulcolax. She was placed on probiotics. Diet was advanced. Blood culture did not isolate any growth. Urine culture no growth. Echocardiogram showed normal ejection fraction. She had episodes of hypokalemia and was given potassium supplements. Hemoglobin levels stabilized. She was tolerating diet and was voiding well and passing flatus and BM. She was then discharged home. FINAL DIAGNOSES: Fever of unknown origin Acute anemia requiring blood transfusion Posthemorrhagic anemia Fibroid uterus with recurrent hemorrhage Status post recent embolization for uterine fibroid Hypertension Hyperlipidemia Constipation Hypokalemia DISPOSITION: Patient was discharged home. DISCHARGE MEDICATIONS: Refer to Discharge Medication List. DISCHARGE INSTRUCTIONS: Follow up within a week. I have been assigned to dictate discharge summary on this account, and I was not involved in the patient's management. Ana Roman NP Apr 28, 2018 11:01
== END 2018-04-27 14:45 | disposition home or self-care (01) | DRG 811 ==
LOC: EMR 13:10 → 3E 13:30 → EDBEDREQSVC 13:51 → EDBEDREQ 14:01
PROC: 30233N1 Transfusion of Nonautologous Red Blood Cells into Peripheral Vein, Percutaneous Approach (ICD-10-PCS; principal; 2018-04-25)
DX: D50.0 Iron deficiency anemia secondary to blood loss (chronic) (principal); I21.9 Acute myocardial infarction, unspecified; R50.82 Postprocedural fever; I10 Essential (primary) hypertension; E78.5 Hyperlipidemia, unspecified; E87.6 Hypokalemia; D25.9 Leiomyoma of uterus, unspecified; K59.09 Other constipation; Z98.890 Other specified postprocedural states; Z88.1 Allergy status to other antibiotic agents
CPT/HCPCS: 36415; 74177; 80053; 80061; 81003; 81025; 83605; 83690; 84443; 85007; 85025; 85610; 85730; 86850; 86900; 86901; 86920; 87040; 87086; 93005; 93306; 96365; 96368; 96375; 99291; J2405